=== PATIENT | male | born 1980 | race Caucasian/White ===

== ENCOUNTER 2022-12-25 11:50 | Inpatient (IN) ==
[~2022-12-25 11:50] MED LIST: ALBUTEROL 2.5 MG/3 ML NEB RESP TX ONE; FAMOTIDINE 20 MG TABLET PO ONE
[2022-12-25] MEDS ORDERED: SODIUM CHLORIDE 0.9% 500 ML IV STA (12:45)
[2022-12-25] MEDS ORDERED: ONDANSETRON 4 MG/2 ML VIAL IV STA (12:45)
[2022-12-25] MEDS ORDERED: LEVOFLOXACIN INJ 750 MG in PREMIX 1 EACH IV STA (13:10)
[2022-12-25] MEDS ORDERED: CLINDAMYCIN INJ 900 MG/50 ML PREMIX IV STA (13:10)
[2022-12-25 13:39] LABS: Basophils % 0.4 % (0.0-0.8); Eosinophils % 0.2 % (0.00-10.9); Hematocrit 34.1 VOL% (42.0-52.0); Hemoglobin 12.4 GM/DL (14.0-18.0); Immature Granulocytes % 1.6 %; Immature Granulocytes Absolute 0.08 #; Lymphocytes # 0.6 10*3/uL (1.4-4.0); Lymphocytes % 12.2 % (21.2-54.2); Mean Corpuscular HGB Conc 36.4 GM/DL (32-36); Mean Corpuscular Volume 93.2 FL (87-102); Monocytes # 0.5 10*3/uL (0.11-0.8); Monocytes % 10.3 % (1.7-12.7); Neutrophils % 75.3 % (38.7-73.9); Platelet Count 87 T/CUMM (130-400); Red Blood Count 3.66 MC/CUMM (3.8-5.5); Red Cell Distribution Width 11.8 % (9.3-17.3); White Blood Count 5.15 T/CUMM (4-12)
[2022-12-25 14:14] LABS: Albumin 2.4 G/DL (3.4-5.0); Bilirubin,Total 1.3 MG/DL (0.20-1.00); Calcium 8.2 MG/DL (8.5-10.1); Osmolality,Calculated 287.9 MOS/KG (273-304); Potassium 4.1 MMOL/L (3.5-5.1); Total Protein 6.9 G/DL (6.4-8.2)
[2022-12-25] MEDS ORDERED: ACETAMINOPHEN 325 MG TABLET PO PRN (14:31)
[2022-12-25] MEDS ORDERED: MORPHINE 2 MG/1 ML SYRINGE IV PRN (14:31)
[2022-12-25] MEDS ORDERED: hydrALAZINE 20 MG/1 ML VIAL IV PRN (14:31)
[2022-12-25] MEDS ORDERED: VANCOMYCIN INJ 1,000 MG in SODIUM CHLORIDE 0.9% 250 ML IV SCH (15:00)
[2022-12-25] MEDS ORDERED: HYDROmorphone 1 MG/1 ML SYRINGE IV PRN (15:15)
[2022-12-25] MEDS ORDERED: oxyCODONE/ACETAMINOPHEN 5-325 MG TABLET PO PRN (15:19)
[2022-12-25] MEDS: HYDROmorphone 1 MG/1 ML SYRINGE IV PRN ×2 (15:36→19:28)
[2022-12-25] MEDS ORDERED: INSULIN REGULAR 100 UNIT/ML IV STA (15:57)
[2022-12-25] MEDS: SODIUM CHLORIDE 0.9% 1,000 ML IV SCH (16:26)
[2022-12-25 16:56] LABS: Sedimentation Rate-Westergren 100 MM/HR (0-15)
[2022-12-25] MEDS: SODIUM HYPOCHLORITE 0.25% IRRIG 473 ML BOTTLE TOP SCH (17:30)
[2022-12-25] MEDS: INSULIN LISPRO 100 UNIT/ML SUBCUT SCH ×2 (17:30→20:42)
[2022-12-25 18:07] LABS: % Iron Saturation 26.9 % (18-50)
[2022-12-25 18:12] LABS: 25 Hydroxy Vitamin D Total 10.7 NG/ML (30-100); Folate 13.29 NG/ML (5.38-24.0)
[2022-12-25] MEDS: VANCOMYCIN INJ 1,250 MG in SODIUM CHLORIDE 0.9% 250 ML IV SCH (18:24)
[2022-12-25 20:37] LABS: Lymphocytes 9 % (20-55); Platelet Estimate Normal; Total Cells Counted 100
[2022-12-25] MEDS: GABAPENTIN 400 MG CAPSULE PO SCH (20:40)
[2022-12-25] MEDS: BACLOFEN 10 MG TABLET PO SCH (20:41)
[2022-12-25] MEDS: PIPERACILLIN/TAZOBACTAM 3,375 MG in SODIUM CHLORIDE 0.9% 100 ML IV SCH (20:41)
[2022-12-25] MEDS: DOCUSATE SODIUM 100 MG CAPSULE PO SCH (20:42)
[2022-12-25] MEDS ORDERED: ZALEPLON 5 MG CAPSULE PO ONE (22:15)
[2022-12-26] MEDS: SODIUM CHLORIDE 0.9% 1,000 ML IV SCH ×2 (01:31→21:44)
[2022-12-26] MEDS: HYDROmorphone 1 MG/1 ML SYRINGE IV PRN ×3 (02:19→21:55)
[2022-12-26 02:51] LABS: Hyaline Casts,Urine 17 /LPF (0-3); Mucus,Urine Occasional /LPF (Occasional); RBC,Urine 16 /HPF (0-4); Squamous Epithelial Cell,Urine Occasional /HPF (0-10)
[2022-12-26 02:52] LABS: Bilirubin,Urine Moderate mg/dL (Negative); Blood, Urine Moderate mg/dL (Negative); Glucose,Urine (UA) 500 mg/dL (Negative); Ketones,Urine Trace mg/dL (Negative); Nitrite,Urine Positive (Negative); Protein,Urine 100 mg/dL (Negative); Urine Appearance Clear (Clear); Urine Color Brown (Yellow); Urine Specific Gravity >= 1.030 (1.001-1.035); Urine pH 5.5 (4.5-8.0)
[2022-12-26] MEDS: ONDANSETRON 4 MG/2 ML VIAL IV PRN (02:55)
[2022-12-26] MEDS: PIPERACILLIN/TAZOBACTAM 3,375 MG in SODIUM CHLORIDE 0.9% 100 ML IV SCH ×3 (03:00→20:10)
[2022-12-26 05:59] LABS: Basophils % 0.5 % (0.0-0.8); Eosinophils # 0.1 10*3/uL (0.0-0.87); Eosinophils % 2.1 % (0.00-10.9); Hematocrit 33.4 VOL% (42.0-52.0); Hemoglobin 11.6 GM/DL (14.0-18.0); Immature Granulocytes % 0.7 %; Immature Granulocytes Absolute 0.03 #; Lymphocytes # 0.6 10*3/uL (1.4-4.0); Lymphocytes % 14.2 % (21.2-54.2); Mean Corpuscular HGB Conc 34.7 GM/DL (32-36); Mean Corpuscular Volume 95.2 FL (87-102); Monocytes # 0.5 10*3/uL (0.11-0.8); Monocytes % 11.8 % (1.7-12.7); Neutrophils % 70.7 % (38.7-73.9); Platelet Count 95 T/CUMM (130-400); Red Blood Count 3.51 MC/CUMM (3.8-5.5); Red Cell Distribution Width 12.2 % (9.3-17.3); White Blood Count 4.23 T/CUMM (4-12)
[2022-12-26] MEDS ORDERED: ALBUTEROL 2.5 MG/3 ML NEB RESP TX ONE (06:00)
[2022-12-26] MEDS ORDERED: FAMOTIDINE 20 MG TABLET PO ONE (06:00)
[2022-12-26 06:19] LABS: Platelet Estimate Decreased
[2022-12-26 06:30] LABS: Calcium 8.1 MG/DL (8.5-10.1); Osmolality,Calculated 279.2 MOS/KG (273-304); Potassium 3.8 MMOL/L (3.5-5.1); Risk Ratio 7.19; Thyroid Stimulating Hormone 0.643 uIU/ml (0.358-3.74); VLDL Cholesterol 35.2 MG/DL
[2022-12-26] MEDS ORDERED: GLYCOPYRROLATE 0.4 MG/2 ML VIAL ONE (08:05)
[2022-12-26] MEDS ORDERED: KETAMINE 500 MG/10 ML VIAL ONE (08:05)
[2022-12-26] MEDS ORDERED: LACTATED RINGERS 1,000 ML IV SCH (08:30)
[2022-12-26] MEDS ORDERED: propofoL 200 MG/20 ML VIAL IV ONE (08:55)
[2022-12-26] MEDS: CELECOXIB 100 MG CAPSULE PO SCH (11:12)
[2022-12-26] MEDS: VANCOMYCIN INJ 1,250 MG in SODIUM CHLORIDE 0.9% 250 ML IV SCH ×2 (11:12→17:48)
[2022-12-26] MEDS: INSULIN LISPRO 100 UNIT/ML SUBCUT SCH ×4 (11:12→21:41)
[2022-12-26] MEDS: DOCUSATE SODIUM 100 MG CAPSULE PO SCH ×2 (11:12→21:40)
[2022-12-26] MEDS: SODIUM HYPOCHLORITE 0.25% IRRIG 473 ML BOTTLE TOP SCH (11:13)
[2022-12-26] MEDS: GABAPENTIN 400 MG CAPSULE PO SCH ×3 (11:13→21:39)
[2022-12-26] MEDS: lisinopriL 10 MG TABLET PO SCH (11:13)
[2022-12-26] MEDS: BACLOFEN 10 MG TABLET PO SCH ×3 (11:13→21:39)
[2022-12-26] MEDS: PANTOPRAZOLE 40 MG TABLET PO SCH (11:14)
[2022-12-26] MEDS ORDERED: DEXTROSE 10% 250 ML BAG IV PRN (11:48)
[2022-12-26] MEDS ORDERED: GLUCAGON 1 MG VIAL IM PRN (11:48)
[2022-12-27] MEDS: SODIUM CHLORIDE 0.9% 1,000 ML IV SCH ×2 (02:12→09:17)
[2022-12-27] MEDS: PIPERACILLIN/TAZOBACTAM 3,375 MG in SODIUM CHLORIDE 0.9% 100 ML IV SCH (03:03)
[2022-12-27 05:20] LABS: Basophils % 0.3 % (0.0-0.8); Eosinophils # 0.1 10*3/uL (0.0-0.87); Eosinophils % 2.3 % (0.00-10.9); Hematocrit 31.7 VOL% (42.0-52.0); Hemoglobin 11.3 GM/DL (14.0-18.0); Immature Granulocytes % 0.3 %; Immature Granulocytes Absolute 0.01 #; Lymphocytes % 31.6 % (21.2-54.2); Mean Corpuscular HGB Conc 35.6 GM/DL (32-36); Mean Corpuscular Volume 93.8 FL (87-102); Mean Platelet Volume 11.2 FL (9.6-12.0); Monocytes # 0.3 10*3/uL (0.11-0.8); Monocytes % 9.4 % (1.7-12.7); Neutrophils % 56.1 % (38.7-73.9); Platelet Count 102 T/CUMM (130-400); Red Blood Count 3.38 MC/CUMM (3.8-5.5); Red Cell Distribution Width 12.1 % (9.3-17.3)
[2022-12-27 05:49] LABS: Calcium 8.1 MG/DL (8.5-10.1); Potassium 3.9 MMOL/L (3.5-5.1)
[2022-12-27] MEDS: ONDANSETRON 4 MG/2 ML VIAL IV PRN (06:25)
[2022-12-27] MEDS: HYDROmorphone 1 MG/1 ML SYRINGE IV PRN ×2 (06:27→11:44)
[2022-12-27] MEDS: VANCOMYCIN INJ 1,250 MG in SODIUM CHLORIDE 0.9% 250 ML IV SCH (06:59)
[2022-12-27] MEDS ORDERED: LEVOFLOXACIN 750 MG TABLET PO SCH (08:30)
[2022-12-27] MEDS ORDERED: INSULIN GLARGINE 100 UNIT/ML SUBCUT SCH (09:00)
[2022-12-27] MEDS: INSULIN LISPRO 100 UNIT/ML SUBCUT SCH ×2 (09:11→11:44)
[2022-12-27] MEDS: lisinopriL 10 MG TABLET PO SCH (09:11)
[2022-12-27] MEDS: BACLOFEN 10 MG TABLET PO SCH (09:11)
[2022-12-27] MEDS: GABAPENTIN 400 MG CAPSULE PO SCH (09:11)
[2022-12-27] MEDS: DOCUSATE SODIUM 100 MG CAPSULE PO SCH (09:11)
[2022-12-27] MEDS: PANTOPRAZOLE 40 MG TABLET PO SCH (09:12)
[2022-12-27] MEDS: CLINDAMYCIN 300 MG CAPSULE PO SCH ×2 (09:12→11:44)
[2022-12-27] MEDS: CELECOXIB 100 MG CAPSULE PO SCH (09:12)
[2022-12-27] MEDS: SODIUM HYPOCHLORITE 0.25% IRRIG 473 ML BOTTLE TOP SCH (09:13)
[2022-12-27 11:59] VITALS: BP 124/65
== END 2022-12-27 13:59 | disposition home health service (06) | DRG 239 ==
LOC: N.ED 11:50 → SUATTDRO 14:31 → N.EDINP 14:31 → N.3E 16:42
PROVIDERS: ADMIT Internal Medicine; ATTEND Family Medicine